=== PATIENT | male | born 1950 | race Caucasian/White ===

== ENCOUNTER 2025-03-01 20:17 | Emergency (ER) | payer OTHER ==
[~2025-03-01] VITALS: Ht 182.8 cm; Wt 118.8 kg
[~2025-03-01 20:17] MED LIST: ASPIRIN325 MG PO; ATIVAN0.5 MG; BIAXIN500 MG PO; CALCIUM500 MG PO; CLOPIDOGREL BIS75 MG PO; COMBIVENT1 ARO IH; DIOVAN40 MG PO; HYZAAR 50/12.5M1 TAB PO; ISOSORBIDE PO; METOPROLOL25 MG PO; MULTIVITAMIN1 CTB PO; OMEPRAZOLE40 MG PO; PERCOCET 325 MG1 TA7 PO; PLAVIX75 MG PO; RANEXA500 MG PO; TRAMADOL HCL50 MG PO
[2025-03-02] MEDS ORDERED: EPINEPHrine Hydrochloride 1 MG/10 ML SYR IV ONE (14:19)
== END 2025-03-01 22:40 ==
LOC: ED 20:17
DX: I46.9 Cardiac arrest, cause unspecified (principal); I10 Essential (primary) hypertension; E11.9 Type 2 diabetes mellitus without complications; I25.10 Atherosclerotic heart disease of native coronary artery without angina pectoris; Z79.82 Long term (current) use of aspirin; Z79.899 Other long term (current) drug therapy; Z88.8 Allergy status to other drugs, medicaments and biological substances; Z90.49 Acquired absence of other specified parts of digestive tract; Z98.890 Other specified postprocedural states